=== PATIENT | female | born 1995 | race Two or more races ===

== ENCOUNTER 2025-01-03 14:01 | Emergency (ER) | payer OTHER ==
[~2025-01-03] VITALS: Ht 167.6 cm; Wt 63.5 kg
[~2025-01-03 14:01] MED LIST: PRENATAL TABLE1 EAC1 PO
[2025-01-03 15:16] VITALS: BP 118/67; O2SAT 98
== END 2025-01-03 16:23 | disposition home or self-care (01) ==
LOC: ER 14:03
DX: O26.892 Other specified pregnancy related conditions, second trimester (principal); R05.9 Cough, unspecified; Z3A.14 14 weeks gestation of pregnancy

== ENCOUNTER 2025-01-07 20:49 | Emergency (ER) | payer OTHER ==
[~2025-01-07] VITALS: Ht 160 cm; Wt 72.1 kg
[2025-01-07] MEDS ORDERED: 0.9 % SODIUM CHLORIDE 1,000 ML IV STA (21:18)
[2025-01-07 21:50] LABS: HEMATOCRIT 30.7 % (36.0-45.00); HEMOGLOBIN 10.9 g/dL (12.0-15.00); MEAN CELL VOLUME 91.6 fL (80.00-100.00); MEAN CORPUSCULAR HEMOGLOBIN 32.5 pg (27.00-32.0); MEAN CORPUSCULAR HGB CONC 35.4 g/dl (32.0-36.0); PLATELET COUNT 265 K/uL (150-450); RED BLOOD COUNT 3.35 M/uL (4.00-6.00); RED CELL DISTRIBUTION WIDTH 12.1 % (11.5-14.5)
[2025-01-07 23:49] LABS: URINE APPEARANCE Clear; URINE BILIRRUBIN Negative (NEGATIVE); URINE BLOOD Negative; URINE COLOR Yellow; URINE GLUCOSE Negative (NEGATIVE); URINE KETONE Negative (NEGATIVE); URINE LEUKOCYTE Negative; URINE NITRATE Negative; URINE PROTEIN Negative (NEGATIVE); URINE UROBILINOGEN 0.2 E.U./dl
[2025-01-07 23:53] LABS: URINE BACTERIA 31.7 uL (0.0-1933); URINE EPITHELIAL CELLS 1.4 uL (0.0-38.8); URINE WBC 2.5 uL (0.0-23.2)
[2025-01-08 00:09] LABS: URINE RBC 0.7 uL (0.0-20.8)
== END 2025-01-07 22:53 | disposition home or self-care (01) ==
LOC: ER 20:49
DX: O26.892 Other specified pregnancy related conditions, second trimester (principal); Z3A.15 15 weeks gestation of pregnancy; S30.1XXA Contusion of abdominal wall, initial encounter; W18.39XA Other fall on same level, initial encounter; Y93.89 Activity, other specified; Y92.012 Bathroom of single-family (private) house as the place of occurrence of the external cause; Y99.9 Unspecified external cause status

== ENCOUNTER 2025-06-19 14:44 | Inpatient (IN) | payer OTHER ==
[~2025-06-19] VITALS: Ht 160 cm; Wt 2.7 kg
[2025-06-19 15:06] LABS: URINE APPEARANCE Clear; URINE BILIRRUBIN Negative (NEGATIVE); URINE BLOOD Negative; URINE COLOR Yellow; URINE GLUCOSE Negative (NEGATIVE); URINE KETONE Negative (NEGATIVE); URINE LEUKOCYTE Trace; URINE NITRATE Negative; URINE PROTEIN Negative (NEGATIVE); URINE UROBILINOGEN 1.0 E.U./dl
[2025-06-19 15:09] LABS: URINE BACTERIA 1044.0 uL (0.0-1933); URINE EPITHELIAL CELLS 41.3 uL (0.0-38.8); URINE RBC 5.7 uL (0.0-20.8); URINE WBC 12.9 uL (0.0-23.2)
[2025-06-19 15:19] LABS: BASO % 0.3 % (0.1-1.2); EOS # 0.07 (0.04-0.54); EOS % 1.1 % (0.7-7.0); LYMPH # 0.94 (1.18-3.74); LYMPH % 14.1 % (19.3-53.1); MEAN PLATELET VOLUME 11.80 fl (9.4-12.4); MONO # 0.62 (0.24-0.82); MONO % 9.3 % (4.7-12.5); NEUT # 4.97 (1.56-6.13); NEUT % 74.7 % (34.0-71.1); RED CELL DISTRIBUTION WIDTH 13.0 % (11.6-14.4)
[2025-06-19 15:29] LABS: INR 0.98
[2025-06-19 15:37] LABS: URINE CAST 0.14 uL (0.0-1.40)
[2025-06-19 15:49] LABS: RH POSITIVE
[2025-06-20] MEDS ORDERED: PRENATA CHEWAB1 EACH PO (09:04)
[2025-06-20 09:06] VITALS: BP 112/71
[2025-06-20] MEDS ORDERED: CEFAZOLIN SODIUM 1,000 MG VIAL ONE (09:57)
[2025-06-20] MEDS ORDERED: ERYTHROMYCIN BASE OPHT 1GM EACH TUBE OP ONE (12:32)
[2025-06-20] MEDS ORDERED: OXYTOCIN 10 UNITS/ML VIAL ONE ×2 (12:32→19:17)
[2025-06-20] MEDS ORDERED: KETOROLAC TROMETHAMINE 60 MG VIAL IM STA (15:59)
[2025-06-20] MEDS ORDERED: OXYTOCIN 1,000 ML IV SCH (16:00)
[2025-06-20] MEDS ORDERED: CHLORHEXIDINE GLUCONATE 120 ML BOTTLE TOP ONE (16:00)
[2025-06-20] MEDS ORDERED: RINGERS SOLUTION,LACTATED 1,000 ML IV SCH (16:00)
[2025-06-20] MEDS ORDERED: MORPHINE SULFATE 4 MG/ML CARTRIDGE IV PRN (16:15)
[2025-06-20] MEDS ORDERED: MORPHINE SULFATE 4 MG/ML VIAL IV ONE ×2 (17:10→18:20)
[2025-06-20 19:33] LABS: BASO % 0.2 % (0.1-1.2); EOS # 0.02 (0.04-0.54); EOS % 0.2 % (0.7-7.0); LYMPH # 0.81 (1.18-3.74); LYMPH % 7.0 % (19.3-53.1); MEAN PLATELET VOLUME 12.00 fl (9.4-12.4); MONO # 0.94 (0.24-0.82); MONO % 8.1 % (4.7-12.5); NEUT # 9.71 (1.56-6.13); NEUT % 84.1 % (34.0-71.1); RED CELL DISTRIBUTION WIDTH 13.0 % (11.6-14.4)
[2025-06-20 19:49] VITALS: BP 122/77
[2025-06-21 01:57] VITALS: BP 111/68
[2025-06-21 08:00] VITALS: BP 102/68
[2025-06-21] MEDS ORDERED: HYDROCORTISONE 2.5% 20 GM TUBE RECTAL SCH (09:00)
[2025-06-21] MEDS ORDERED: OxyCODONE HCL 5 MG TABLET (ROXICODONE) PO PRN (09:00)
[2025-06-21] MEDS ORDERED: ACETAMINOPHEN 500 MG GEL..CAP PO PRN (09:00)
[2025-06-21 16:00] VITALS: BP 97/64
[2025-06-22] VITALS: BP 114/73
[2025-06-22 08:59] VITALS: BP 110/72
[2025-06-22 16:21] VITALS: BP 116/77
[2025-06-23 00:04] VITALS: BP 102/64
[2025-06-23 08:00] VITALS: BP 117/78
== END 2025-06-23 14:21 | disposition home or self-care (01) | DRG 785 ==
LOC: OB/GYN 06-20 10:00 → O/R 06-20 10:17 → OB/GYN 06-20 14:09
PROVIDERS: ADMIT Obstetrics & Gynecology; ATTEND Obstetrics & Gynecology
PROC: 0UB70ZZ Excision of Bilateral Fallopian Tubes, Open Approach (ICD-10-PCS; 2025-06-20)
PROC: 4A1HXCZ Monitoring of Products of Conception, Cardiac Rate, External Approach (ICD-10-PCS; 2025-06-20)
PROC: 10D00Z1 Extraction of Products of Conception, Low, Open Approach (ICD-10-PCS; principal; 2025-06-20 10:00)
DX: O32.8XX0 Maternal care for other malpresentation of fetus, not applicable or unspecified (principal); O99.824 Streptococcus B carrier state complicating childbirth; Z3A.39 39 weeks gestation of pregnancy; Z37.0 Single live birth; Z30.2 Encounter for sterilization